=== PATIENT | female | born 1990 | race Caucasian/White ===

== ENCOUNTER 2016-07-02 12:55 | Emergency (ER) | payer SELFPAY ==
[2016-07-02 13:19] VITALS: BP 121/65
[2016-07-02] MEDS ORDERED: OXYCODONE-ACETAMINOPHEN 5-325 MG TABLET PO ONE (14:04)
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
== END 2016-07-02 14:15 | disposition home or self-care (01) ==
LOC: ER 12:55
DX: S00.12XA Contusion of left eyelid and periocular area, initial encounter (principal); S70.02XA Contusion of left hip, initial encounter; S50.11XA Contusion of right forearm, initial encounter; S40.021A Contusion of right upper arm, initial encounter; S50.12XA Contusion of left forearm, initial encounter; S70.12XA Contusion of left thigh, initial encounter; S70.11XA Contusion of right thigh, initial encounter; S80.11XA Contusion of right lower leg, initial encounter; M54.9 Dorsalgia, unspecified; Y04.2XXA Assault by strike against or bumped into by another person, initial encounter; Y93.01 Activity, walking, marching and hiking; F17.210 Nicotine dependence, cigarettes, uncomplicated; J45.909 Unspecified asthma, uncomplicated
CPT/HCPCS: 99283

== ENCOUNTER 2016-09-16 16:18 | Emergency (ER) | payer SELFPAY ==
[2016-09-16 17:11] LABS: ABSOLUTE BASOPHILS # (AUTO) 0.1 10^3/uL (0.0-0.2); ABSOLUTE EOSINOPHILS # (AUTO) 0.2 10^3/uL (0.0-0.6); ABSOLUTE LYMPHOCYTES (AUTO) 2.7 10^3/uL (0.5-4.7); ABSOLUTE MONOCYTES (AUTO) 0.6 10^3/uL (0.1-1.4); ABSOLUTE NEUT (AUTO) 6.5 10^3/uL (1.7-8.2); BASOPHILS % (AUTO) 0.8 % (0-2); EOSINOPHILS % (AUTO) 1.5 % (0-6); HEMATOCRIT 40.9 % (36.0-47.0); HEMOGLOBIN 13.8 g/dL (12.0-15.5); HGB HCT DIFFERENCE 0.5; LYMPHOCYTES % (AUTO) 26.5 % (13-45); MEAN CORPUSCULAR HGB CONC 33.7 g/dL (32.0-36.0); MEAN CORPUSCULAR VOLUME 89 fl (80-97); MONOCYTES % (AUTO) 6.3 % (3-13); RED BLOOD COUNT 4.61 10^6/uL (3.72-5.28); RED CELL DISTRIBUTION WIDTH 13.5 % (11.5-14.0); SEGMENTED NEUTROPHILS % (AUTO) 64.9 % (42-78); WHITE BLOOD COUNT 10.1 10^3/uL (4.0-10.5)
[2016-09-16 17:18] LABS: APPEARANCE,URINE SLIGHTLY-CLOUDY; BILIRUBIN,URINE NEGATIVE (NEGATIVE); GLUCOSE, URINE NEGATIVE (NEGATIVE); KETONES,URINE NEGATIVE (NEGATIVE); LEUKOCYTE ESTERASE,URINE LARGE (NEGATIVE); NITRITE,URINE NEGATIVE (NEGATIVE); PROTEIN,URINE NEGATIVE (NEGATIVE); URINE SPECIFIC GRAVITY 1.005; UROBILINOGEN,URINE NEGATIVE mg/dL (<2.0)
[2016-09-16 17:26] LABS: ALANINE AMINOTRANSFERASE 17 U/L (9-52); ALBUMIN 4.5 g/dL (3.5-5.0); ALKALINE PHOSPHATASE 52 U/L (38-126); ANION GAP 12 (5-19); ASPARTATE AMINO TRANSFERASE 16 U/L (14-36); BILIRUBIN,DIRECT 0.3 mg/dL (0.0-0.4); BILIRUBIN,TOTAL 0.6 mg/dL (0.2-1.3); BLOOD UREA NITROGEN 4 mg/dL (7-20); CALCIUM 9.8 mg/dL (8.4-10.2); CARBON DIOXIDE 25 mmol/L (22-30); CHLORIDE 102 mmol/L (98-107); CREATININE RESULT 0.53 mg/dL (0.52-1.25); GLUCOSE 81 mg/dL (75-110); POTASSIUM 4.1 mmol/L (3.6-5.0); SODIUM 138.6 mmol/L (137-145); TOTAL PROTEIN 7.6 g/dL (6.3-8.2)
--- NOTE | 2016-09-16 18:10 | ER Document Report ---
ED General - General Chief Complaint: Abdominal Cramping Stated Complaint: ABDOMINAL PAIN,VOMITING Time Seen by Provider: 09/16/16 16:54 Notes: Patient presents with bilateral lower quadrant abdominal pain. It is moderate to severe. It is crampy. It does go the low back. It has been present for 3- 4 days. Nothing makes it better or worse. No vaginal bleeding. No problems with urination. She states she has missed her period last 2 months. Patient states she has been nauseous and having some vomiting. Symptoms intermittent. TRAVEL OUTSIDE OF THE [place] IN LAST 30 DAYS: No - Related Data Allergies/Adverse Reactions: No Known Allergies Allergy (Verified 09/16/16 16:28) Past Medical History - General Information source: Patient - Social History Smoking Status: Current Every Day Smoker Chew tobacco use (# tins/day): No Frequency of alcohol use: None Drug Abuse: None Family History: Arthritis, DM, Hyperlipidemia, Hypertension, Malignancy Patient has suicidal ideation: No Patient has homicidal ideation: No Pulmonary Medical History: Reports: Hx Asthma, Hx Bronchitis Neurological Medical History: Reports: Hx Migraine Renal/ Medical History: Denies: Hx Peritoneal Dialysis Musculoskeltal Medical History: Reports Hx Musculoskeletal Deformity, Reports Hx Musculoskeletal Trauma Traumatic Medical History: Reports: Hx Fractures Past Surgical History: Reports: Hx Orthopedic Surgery - fx r wrist - Immunizations Immunizations up to date: Yes Hx Diphtheria, Pertussis, Tetanus Vaccination: Yes Review of Systems - Review of Systems Constitutional: denies: Chills, Fever Cardiovascular: denies: Chest pain, Palpitations Respiratory: denies: Cough, Short of breath Gastrointestinal: Abdominal pain, Diarrhea, Vomiting -: Yes All other systems reviewed and negative Physical Exam - Vital signs Vitals: Temp Pulse Resp BP Pulse Ox 98.4 F 97 18 113/66 98 09/16/16 16:30 09/16/16 16:30 09/16/16 16:30 09/16/16 16:30 09/16/16 16:30 Interpretation: Normal - General General appearance: Appears well, Alert - HEENT Head: Normocephalic, Atraumatic Eyes: Normal Pupils: PERRL - Respiratory Respiratory status: No respiratory distress Chest status: Nontender Breath sounds: Normal Chest palpation: Normal - Cardiovascular Rhythm: Regular Heart sounds: Normal auscultation Murmur: No - Abdominal Inspection: Normal Distension: No distension Bowel sounds: Normal Tenderness: Nontender Organomegaly: No organomegaly - Back Back: Normal, Nontender - Extremities General upper extremity: Normal inspection, Nontender, Normal color, Normal ROM , Normal temperature General lower extremity: Normal inspection, Nontender, Normal color, Normal ROM , Normal temperature, Normal weight bearing. No: Adriana's sign - Neurological Neuro grossly intact: Yes Cognition: Normal Orientation: AAOx4 [place] Coma Scale Eye Opening: Spontaneous [place] Coma Scale Verbal: Oriented [place] Coma Scale Motor: Obeys Commands Tra Coma Scale Total: 15 Speech: Normal Motor strength normal: LUE, RUE, LLE, RLE Sensory: Normal - Psychological Associated symptoms: Normal affect, Normal mood - Skin Skin Temperature: Warm Skin Moisture: Dry Skin Color: Normal Course - Vital Signs Vital signs: Temp Pulse Resp BP Pulse Ox 98.4 F 97 18 113/66 98 09/16/16 16:30 09/16/16 16:30 09/16/16 16:30 09/16/16 16:30 09/16/16 16:30 - Laboratory Result Diagrams: 09/16/16 16:55 09/16/16 16:55 Laboratory results interpreted by me: 09/16/16 09/16/16 09/16/16 16:55 16:55 16:55 BUN 4 L Beta HCG, Quant [id number] H Ur Leukocyte Esterase LARGE H Urine HCG, Qual POSITIVE H Discharge - Discharge Clinical Impression: Abdominal pain affecting Condition: Stable Disposition: HOME, SELF-CARE Instructions: Abdominal Pain ([facility]) Additional Instructions: There are approximately 7 weeks . You will need to follow-up with an ADMINISTRATIVE ANALYST doctor as soon as possible. Please call Dr. Gamboa as soon as possible to arrange follow-up. Referrals: RONALD GAMBOA MD [ACTIVE STAFF] - Follow up in 3-5 days
--- NOTE | 2016-09-16 19:15 | RADIOLOGY REPORT (SQ) ---
EXAM DESCRIPTION: U/S OB TRANSVAGINAL W/O DOP COMPLETED DATE/TIME: 09/16/2016 6:59 pm REASON FOR STUDY: pain/preg COMPARISON: None. TECHNIQUE: Transvaginal static and realtime grayscale images acquired of the pelvis. Additional jaylin cted spectral and color Doppler images recorded. All images stored on PACs. bHCG: Not available LIMITATIONS: None. FINDINGS: FETUS: Living intrauterine . EGA: 7 weeks 3 days MOUNA: 05/02/2017 FHR: 143 beats per minute. SUBCHORIONIC BLEED: No SIZE OF BLEED: Not applicable. UTERUS: No masses. No anomalies. CERVICAL LENGTH: 3.0 cm Closed. RIGHT ADNEXA: Normal ovary with normal vascular flow. Small cyst is identified measuring 2.4 x 2.1 x 1.9 cm most consistent with a corpus lutein cysts. LEFT ADNEXA: Normal ovary with normal vascular flow. No adnexal free fluid. No adnexal masses. FREE FLUID: None. OTHER: No other significant finding. IMPRESSION: LIVING INTRAUTERINE . EGA 7 weeks 3 days Trimester of : First - 0 to 13 weeks. TECHNICAL DOCUMENTATION: JOB ID: [id number] [employer]- All Rights Reserved
[2016-09-16 19:32] VITALS: BP 111/76
== END 2016-09-16 19:32 | disposition home or self-care (01) ==
LOC: ER 16:18
DX: R10.9 Unspecified abdominal pain (principal); R10.2 Pelvic and perineal pain; R11.10 Vomiting, unspecified; F17.200 Nicotine dependence, unspecified, uncomplicated; Z33.1 Pregnant state, incidental
CPT/HCPCS: 36415; 76817; 80053; 81001; 81025; 84702; 85025; 99284

== ENCOUNTER 2016-10-24 14:29 | Emergency (ER) | payer SELFPAY ==
--- NOTE | 2016-10-24 14:56 | ER Document Report ---
ED GI/ - General Chief Complaint: Vaginal Bleeding Stated Complaint: VAGINAL BLEEDING Time Seen by Provider: 10/24/16 14:55 Notes: The patient is a 26-year-old female, 13 weeks , blood type O+, presents with a small amount of vaginal spotting last night that now progressed to cramping and passing blood clots this morning. She feels a pressure in her pelvis, but denies contractions, nausea, vomiting, dysuria, hematuria, flank pain, fevers or headache. TRAVEL OUTSIDE OF THE [place] IN LAST 30 DAYS: No - Related Data Allergies/Adverse Reactions: No Known Allergies Allergy (Verified 09/16/16 16:28) Past Medical History - General Information source: Patient - Social History Smoking Status: Unknown if Ever Smoked Family History: Arthritis, DM, Hyperlipidemia, Hypertension, Malignancy Patient has suicidal ideation: No Patient has homicidal ideation: No Pulmonary Medical History: Reports: Hx Asthma, Hx Bronchitis Neurological Medical History: Reports: Hx Migraine Renal/ Medical History: Denies: Hx Peritoneal Dialysis Musculoskeltal Medical History: Reports Hx Musculoskeletal Deformity, Reports Hx Musculoskeletal Trauma Traumatic Medical History: Reports: Hx Fractures Past Surgical History: Reports: Hx Orthopedic Surgery - fx r wrist - Immunizations Immunizations up to date: Yes Hx Diphtheria, Pertussis, Tetanus Vaccination: Yes Review of Systems - Review of Systems Notes: REVIEW OF SYSTEMS: CONSTITUTIONAL: -fevers, -chills EENT: -eye pain, -difficulty swallowing, -nasal congestion CARDIOVASCULAR:-chest pain, -syncope. RESPIRATORY: -cough, -SOB GASTROINTESTINAL: -abdominal pain, - nausea, -vomiting, -diarrhea GENITOURINARY: -dysuria, -hematuria, +vaginal bleeding MUSCULOSKELETAL: -back pain, -neck pain SKIN: -rash or skin lesions. HEMATOLOGIC: -easy bruising or bleeding. LYMPHATIC: -swollen, enlarged glands. NEUROLOGICAL: -altered mental status or loss of consciousness, -headache, - neurologic symptoms PSYCHIATRIC: -anxiety, -depression. ALL OTHER SYSTEMS REVIEWED AND NEGATIVE. Physical Exam - Vital signs Vitals: Temp Pulse Resp BP Pulse Ox 98.5 F 85 12 115/62 98 10/24/16 14:50 10/24/16 14:50 10/24/16 14:50 10/24/16 14:50 10/24/16 14:50 - Notes Notes: PHYSICAL EXAMINATION: GENERAL: Well-appearing, well-nourished and in no acute distress. HEAD: Atraumatic, normocephalic. EYES: Pupils equal round and reactive to light, extraocular movements intact, sclera anicteric, conjunctiva are normal. ENT: nares patent, oropharynx clear without exudates. Moist mucous membranes. NECK: Normal range of motion, supple without lymphadenopathy LUNGS: Breath sounds clear to auscultation bilaterally and equal. No wheezes rales or rhonchi. HEART: Regular rate and rhythm without murmurs ABDOMEN: Soft, nontender, normoactive bowel sounds. No guarding, no rebound. No masses appreciated. : No bleeding noted in vagina. Closed cervix. Non-tender adnexa or uterus. EXTREMITIES: Normal range of motion, no pitting or edema. No cyanosis. NEUROLOGICAL: Cranial nerves grossly intact. Normal speech, normal gait. Normal sensory and motor exams. PSYCH: Normal mood, normal affect. SKIN: Warm, Dry, normal turgor, no rashes or lesions noted. Course - Re-evaluation Re-evalutation: Patient's blood type is O+. Her bedside ultrasound shows a single intrauterine fetus consistent with dates and normal heart rate and active movement. Pelvic exam shows a closed cervix without any evidence of vaginal bleeding or clots. Her vitals are stable. UA shows evidence of a urinary tract infection and will begin Macrobid. Will discharge patient home with return precautions and [facility] for further evaluation and treatment. - Vital Signs Vital signs: Temp Pulse Resp BP Pulse Ox 98.5 F 85 12 115/62 98 10/24/16 14:50 10/24/16 14:50 10/24/16 14:50 10/24/16 14:50 10/24/16 14:50 - Laboratory Laboratory results interpreted by me: 10/24/16 15:18 Urine Blood LARGE H Ur Leukocyte Esterase MODERATE H Procedures - Ultrasound/Bedside Ultrasound/Bedside Time completed: 15:05 Notes: OB US: single IUP with EGA 13 weeks, FHR 161 Discharge - Discharge Clinical Impression: Vaginal bleeding before 22 weeks gestation UTI (urinary tract infection) Qualifiers: Urinary tract infection type: acute cystitis Hematuria presence: without hematuria Qualified Code(s): N30.00 - Acute cystitis without hematuria Condition: Stable Disposition: HOME, SELF-CARE Additional Instructions: : You are . care is best started as early in as possible. If you're unsure about continuing this , you should discuss this with your physician or with hot mill roller at [facility]. You should take only medications approved by your physician. Acetaminophen can safely be taken for minor pains. As a rule, medication for chronic conditions such as asthma or seizures can safely be continued. You should discuss with the physician every medicine you take. Any regular exercise program can be continued. Talk to your physician, however, before engaging in competitive or demanding sports. Alcohol, smoking, and "street drugs" are dangerous to your baby. Cocaine is especially dangerous. Don't use any illicit drugs! BLEEDING DURING EARLY : You have been evaluated for passing blood while . While we take this symptom very seriously, most women with your degree of bleeding will go on to have a perfectly normal baby. At this time, there is no indication that a miscarriage will occur. (A miscarriage occurs when the fetus is abnormal. There is no medicine or treatment to prevent it.) A more serious cause of bleeding is tubal (or ectopic) . An ultrasound usually can show whether the is in the uterus or in the tube. Sometimes in early , no fetus is seen. In this case, careful follow-up, including repeat blood tests and repeat ultrasound, is necessary. Do not douche or have sex for at least a week, or until OK'd by the doctor. Don't use tampons. Call the doctor or return for re-examination if there is an increase in bleeding or cramping, extreme weakness, fainting, new abdominal pain, fever, or passage of tissue. THREATENED MISCARRIAGE: You have been evaluated for a possible miscarriage. At this time, there is no indication that a miscarriage will occur. Most women with your symptoms will go on to have a perfectly normal baby. However, careful observation will be necessary. A miscarriage occurs when the fetus is abnormal. There is no medicine or treatment for it. You should rest in bed until the symptoms have resolved. Do not douche or have sex for at least a week, or until OK'd by the doctor. Call the doctor or return for re-examination if there is an increase in bleeding or cramping, or passage of tissue. FOLLOW-UP CARE: If you have been referred to a physician for follow-up care, call the physician s office for an appointment as you were instructed or within the next two days. If you experience worsening or a significant change in your symptoms (very heavy bleeding with large clots of blood, passage of tissue, more severe abdominal / pelvic pain or cramping, feeling faint or severe weakness, fever, etc.), notify the physician immediately or return to the Emergency Department at any time for re-evaluation. OBSTETRIC-GYNECOLOGIC (OB-HIM DIRECTOR) PHYSICIANS IN [place]: [facility] [address], [place] [address] [facility] [address], [place] [phone] For active duty and dependents diagnosed with a threatened or miscarriage, you should follow up in the following manner: Standard patients who have a local civilian provider should follow up with that provider. Patients of the Family Practice Clinic should call your Team Nurse at 8: 00 am the following morning for further instructions. If you are neither a Standard patient nor a patient of the Family Practice Clinic, you should follow up at the [facility] ([facility]) . Patients already enrolled in the [facility], Prime patients not assigned to the Family Practice Clinic, and Active Duty patients not assigned to [facility] should report to the [facility] at 8:00 am the next morning that the [facility] is open and then you will be seen in the OB Clinic at 11:00 am. URINARY TRACT INFECTION: Your evaluation indicates that you have a urinary tract infection. This is due to germs growing in the bladder. This is a common problem. This infection usually responds quickly to antibiotics. Your antibiotic should be taken exactly as prescribed. Drink plenty of fluids -- three to four quarts a day. Occasionally, a bladder anesthetic will be prescribed to help stop the feeling of urgency until the antibiotic has a chance to clear the infection. This may cause your urine to be dark orange. Certain urine infections require a culture. If the doctor obtained a culture, the results will be back in two days. You should call to see if a change in treatment is needed. A repeat urinalysis after you finish treatment is often recommended. The physician will let you know if further testing is required. Call the doctor if you develop fever, chills, flank pain, inability to urinate, or blood in the urine. ANTIBIOTIC THERAPY: You have been given an antibiotic prescription. It's important that you take all the medication, unless instructed otherwise by your physician. Failure to complete the entire course can result in relapse of your condition. Common side effects of antibiotics include nausea, intestinal cramping, or diarrhea. Women may develop vaginal yeast infections, and babies can get yeast (thrush) in the mouth following the use of antibiotics. Contact your physician if you develop significant side effects from this medication. Allergy to this antibiotic can result in hives, wheezing, faintness, or itching. If symptoms of allergy occur, stop the medication and call the doctor. NITROFURANTOIN (MACRODANTIN, MACROBID): You have received a prescription for nitrofurantoin (Macrodantin). This antibiotic is used for urinary tract infections. Women who are or nursing should notify the physician before taking this medicine. If you have ever had a problem caused by this medication in the past, be sure the physician is aware of it. Common side effects of this medicine include nausea, vomiting, or decreased appetite. Notify your physician if these side effects become severe. Immediately stop this medicine and call the physician if you develop cough , shortness of breath, chest pain, weakness, jaundice (yellow color of the skin and whites of the eyes), or a skin rash. FOLLOW-UP CARE: If you have been referred to a physician for follow-up care, call the physician s office for an appointment as you were instructed or within the next two days. If you experience worsening or a significant change in your symptoms, notify the physician immediately or return to the Emergency Department at any time for re-evaluation. Prescriptions: Nitrofurantoin/Nitrofuran Mac [Macrobid 100 mg Capsule] 1 tab PO BID #10 capsule Referrals: RENAY CORTEZ DO [SHIRAZ العراقي] - Follow up as needed
[2016-10-24 15:38] LABS: APPEARANCE,URINE CLEAR; BILIRUBIN,URINE NEGATIVE (NEGATIVE); GLUCOSE, URINE NEGATIVE (NEGATIVE); KETONES,URINE NEGATIVE (NEGATIVE); LEUKOCYTE ESTERASE,URINE MODERATE (NEGATIVE); NITRITE,URINE NEGATIVE (NEGATIVE); PROTEIN,URINE NEGATIVE (NEGATIVE); URINE SPECIFIC GRAVITY 1.002; UROBILINOGEN,URINE NEGATIVE mg/dL (<2.0)
[2016-10-24 15:44] VITALS: BP 114/60
== END 2016-10-24 15:44 | disposition home or self-care (01) ==
LOC: ER 14:29
DX: O20.9 Hemorrhage in early pregnancy, unspecified (principal); O23.11 Infections of bladder in pregnancy, first trimester; O99.511 Diseases of the respiratory system complicating pregnancy, first trimester; J45.909 Unspecified asthma, uncomplicated; Z3A.13 13 weeks gestation of pregnancy
CPT/HCPCS: 81001; 99284

== ENCOUNTER 2016-10-27 15:56 | Emergency (ER) | payer SELFPAY ==
--- NOTE | 2016-10-27 16:57 | ER Document Report ---
ED GI/ - General Chief Complaint: Dizziness Stated Complaint: DIZZY,BLURRED VISION,FEVER Time Seen by Provider: 10/27/16 16:39 Mode of Arrival: Ambulatory Information source: Patient Notes: 26-year-old female presents to ED for complaint of abdominal pain back pain dizziness blurry vision fever cramping and trouble breathing. She is approximately 12 weeks and was seen on the third for vaginal bleeding. She states she was diagnosed with UTI and started on Macrobid and the pain is gotten worse not better. She states today she went to work and she was only there for a few minutes before she started getting dizzy and had to sit down the whole time she was at [employer] and only stayed an hour and then went home. TRAVEL OUTSIDE OF THE [place] IN LAST 30 DAYS: No - HPI Patient complains to provider of: Abdominal pain, Flank pain, , Other - dizziness Onset: Last week Timing/Duration: Persistent Quality of pain: Sharp Severity at maximum: Moderate Severity in ED: Moderate Pain Level: 3 Location: Right flank Vaginal bleeding (Compared to normal period): None Associated symptoms: Dizzy, Other - right flank pian - Related Data Allergies/Adverse Reactions: No Known Allergies Allergy (Verified 10/27/16 16:09) Past Medical History - General Information source: Patient - Social History Smoking Status: Current Every Day Smoker Cigarette use (# per day): Yes - 2 cigarettes a day Chew tobacco use (# tins/day): No Smoking Education Provided: Yes - Less than 1 minute Frequency of alcohol use: None Drug Abuse: None Occupation: [employer] Lives with: Alone Family History: Arthritis, DM, Hyperlipidemia, Hypertension, Malignancy Patient has suicidal ideation: No Patient has homicidal ideation: No - Past Medical History Cardiac Medical History: Reports: None Pulmonary Medical History: Reports: Hx Asthma, Hx Bronchitis EENT Medical History: Reports: None Neurological Medical History: Reports: Hx Migraine Endocrine Medical History: Reports: None Renal/ Medical History: Reports: None Malignancy Medical History: Reports: None GI Medical History: Reports: None Musculoskeltal Medical History: Reports Hx Musculoskeletal Deformity, Reports Hx Musculoskeletal Trauma Skin Medical History: Reports None Psychiatric Medical History: Reports: None Traumatic Medical History: Reports: Hx Fractures Infectious Medical History: Reports: None Past Surgical History: Reports: Hx Orthopedic Surgery - fx r wrist - Immunizations Immunizations up to date: Yes Hx Diphtheria, Pertussis, Tetanus Vaccination: Yes Review of Systems - Review of Systems Constitutional: No symptoms reported EENT: No symptoms reported Cardiovascular: Dizziness, Lightheaded Respiratory: No symptoms reported Gastrointestinal: Abdominal pain Genitourinary: Flank pain Female Genitourinary: Musculoskeletal: No symptoms reported Skin: No symptoms reported Hematologic/Lymphatic: No symptoms reported Neurological/Psychological: No symptoms reported -: Yes All other systems reviewed and negative Physical Exam - Vital signs Vitals: Temp Pulse Resp BP Pulse Ox 98.5 F 78 18 123/57 L 98 10/27/16 16:10/27/16 16:10/27/16 16:10/27/16 16:10/27/16 16:09 Interpretation: Normal - General General appearance: Appears well, Alert - HEENT Head: Normocephalic, Atraumatic Eyes: Normal Pupils: PERRL - Respiratory Respiratory status: No respiratory distress Chest status: Nontender Breath sounds: Normal Chest palpation: Normal - Cardiovascular Rhythm: Regular Heart sounds: Normal auscultation Murmur: No - Abdominal Inspection: Normal Distension: No distension Bowel sounds: Normal Tenderness: Nontender Organomegaly: No organomegaly - Back Back: Normal, CVA tenderness - Right - Extremities General upper extremity: Normal inspection, Nontender, Normal color, Normal ROM , Normal temperature General lower extremity: Normal inspection, Nontender, Normal color, Normal ROM , Normal temperature, Normal weight bearing. No: Adriana's sign - Neurological Neuro grossly intact: Yes Cognition: Normal Orientation: AAOx4 Tra Coma Scale Eye Opening: Spontaneous [place] Coma Scale Verbal: Oriented [place] Coma Scale Motor: Obeys Commands [place] Coma Scale Total: 15 Speech: Normal Cranial nerves: Normal Cerebellar coordination: Normal Motor strength normal: LUE, RUE, LLE, RLE Additional motor exam normals: Equal adjunct philosophy faculty Babinski reflex: Normal (flexor plantar) Sensory: Normal Biceps - Reflex grade: 2 = Normal Triceps - Reflex grade: 2 = Normal Brachioradialis - Reflex grade: 2 = Normal Knee - Reflex grade: 2 = Normal Ankle - Reflex grade: 2 = Normal - Psychological Associated symptoms: Normal affect, Normal mood - Skin Skin Temperature: Warm Skin Moisture: Dry Skin Color: Normal Course - Re-evaluation Re-evalutation: 10/27/16 21:55 Patient is very anxious about her and the fact that she is continued to have flank pain. A urine was sent patient was treated with Keflex to go along with the Macrobid she is already taken for her UTI. The UTI is actually worse today. A urine culture was sent. Patient was discharged home with prescription for Keflex and instructed to follow-up with the health department or [facility]. - Vital Signs Vital signs: Temp Pulse Resp BP Pulse Ox 98.5 F 78 18 103/43 L 99 10/27/16 17:54 10/27/16 17:54 10/27/16 16:10 10/27/16 17:54 10/27/16 17:54 - Laboratory Laboratory results interpreted by me: 10/27/16 16:40 Urine Protein 30 H Urine Ketones 20 H Urine Blood MODERATE H Ur Leukocyte Esterase LARGE H Discharge - Discharge Clinical Impression: UTI (urinary tract infection) Qualifiers: Urinary tract infection type: site unspecified Hematuria presence: without hematuria Qualified Code(s): N39.0 - Urinary tract infection, site not specified Condition: Stable Disposition: HOME, SELF-CARE Instructions: Family Physicians / Practices Additional Instructions: URINARY TRACT INFECTION: Your evaluation indicates that you have a urinary tract infection. This is due to germs growing in the bladder. This is a common problem. This infection usually responds quickly to antibiotics. Your antibiotic should be taken exactly as prescribed. Drink plenty of fluids -- three to four quarts a day. Occasionally, a bladder anesthetic will be prescribed to help stop the feeling of urgency until the antibiotic has a chance to clear the infection. This may cause your urine to be dark orange. Certain urine infections require a culture. If the doctor obtained a culture, the results will be back in two days. You should call to see if a change in treatment is needed. A repeat urinalysis after you finish treatment is often recommended. The physician will let you know if further testing is required. Call the doctor if you develop fever, chills, flank pain, inability to urinate, or blood in the urine. CEPHALEXIN: The antibiotic you've been prescribed is a member of the cephalosporin class. This type of antibiotic covers a wide variety of infections, including those of the skin, lungs, and urinary tract. It's useful for staph infections. This antibiotic is slightly similar to the penicillin family. In rare cases , a person who is allergic to penicillin will also be allergic to this medication. If you have had a severe allergic reaction to penicillin, and have not taken this antibiotic since that time, notify your doctor. Antibiotics which cover many germs ("broad spectrum" antibiotics) are more likely to cause diarrhea or "yeast" infections. Women prone to vaginal yeast problems may suffer an attack after taking this antibiotic. In infants, oral thrush (white spots "stuck" on the cheek) or yeast diaper rash may result. See your doctor if these problems occur. Call at once if you develop itching, hives , shortness of breath, or lightheadedness. FOLLOW-UP CARE: If you have been referred to a physician for follow-up care, call the physician s office for an appointment as you were instructed or within the next two days. If you experience worsening or a significant change in your symptoms, notify the physician immediately or return to the Emergency Department at any time for re-evaluation. Prescriptions: Cephalexin Monohydrate [Keflex 500 mg Capsule] 500 mg PO Q6H 10 Days capsule Forms: Return to Work Referrals: [facility] [Provider Group] - Follow up as needed
[2016-10-27 17:33] LABS: APPEARANCE,URINE SLIGHTLY-CLOUDY; BILIRUBIN,URINE NEGATIVE (NEGATIVE); GLUCOSE, URINE NEGATIVE (NEGATIVE); KETONES,URINE 20 mg/dL (NEGATIVE); LEUKOCYTE ESTERASE,URINE LARGE (NEGATIVE); NITRITE,URINE NEGATIVE (NEGATIVE); PROTEIN,URINE 30 mg/dL (NEGATIVE); URINE SPECIFIC GRAVITY 1.002; UROBILINOGEN,URINE NEGATIVE mg/dL (<2.0)
[2016-10-27] MEDS ORDERED: CEFTRIAXONE INJ 1000 MG VIAL IM ONE (17:36)
[2016-10-27] MEDS ORDERED: LIDOCAINE 1% INJ-PF (10 MG/ML) 30 ML SDV INJ ONE (17:36)
[2016-10-27 18:04] VITALS: BP 103/43
== END 2016-10-27 18:04 | disposition home or self-care (01) ==
LOC: ER 15:56
DX: N39.0 Urinary tract infection, site not specified (principal); R42 Dizziness and giddiness; H53.8 Other visual disturbances; R50.9 Fever, unspecified; R10.9 Unspecified abdominal pain; M54.9 Dorsalgia, unspecified; F17.210 Nicotine dependence, cigarettes, uncomplicated
CPT/HCPCS: 99284; 96372; 87086; 87088; 81001; 87186; J3490; J0696

== ENCOUNTER 2017-04-10 19:46 | Outpatient (CLI) | payer SELFPAY ==
[2017-04-10 20:47] LABS: BILIRUBIN,URINE NEGATIVE (NEGATIVE); COLOR,URINE YELLOW; GLUCOSE, URINE NEGATIVE (NEGATIVE); KETONES,URINE NEGATIVE (NEGATIVE); LEUKOCYTE ESTERASE,URINE LARGE (NEGATIVE); NITRITE,URINE NEGATIVE (NEGATIVE); PROTEIN,URINE NEGATIVE (NEGATIVE); URINE SPECIFIC GRAVITY 1.002; UROBILINOGEN,URINE NEGATIVE mg/dL (<2.0)
[2017-04-10 20:50] LABS: APPEARANCE,URINE CLEAR
[2017-04-10 21:00] LABS: AMNISURE (ROM) NEGATIVE (NEGATIVE)
[2017-04-10 21:12] LABS: URINE AMPHETAMINES SCREEN NEGATIVE; URINE BARBITURATES SCREEN NEGATIVE; URINE BENZODIAZEPINES SCREEN NEGATIVE; URINE COCAINE SCREEN NEGATIVE; URINE MARIJUANA (THC) SCREEN NEGATIVE; URINE METHADONE SCREEN NEGATIVE; URINE PHENCYCLIDINE SCREEN NEGATIVE
[2017-04-10 21:27] LABS: ABSOLUTE EOSINOPHILS # (AUTO) 0.1 10^3/uL (0.0-0.6); ABSOLUTE LYMPHOCYTES (AUTO) 2.2 10^3/uL (0.5-4.7); ABSOLUTE MONOCYTES (AUTO) 0.6 10^3/uL (0.1-1.4); ABSOLUTE NEUT (AUTO) 8.1 10^3/uL (1.7-8.2); BASOPHILS % (AUTO) 0.3 % (0-2); EOSINOPHILS % (AUTO) 0.9 % (0-6); HEMATOCRIT 33.5 % (36.0-47.0); HEMOGLOBIN 11.3 g/dL (12.0-15.5); LYMPHOCYTES % (AUTO) 20.2 % (13-45); MEAN CORPUSCULAR HEMOGLOBIN 30.1 pg (27.0-33.4); MEAN CORPUSCULAR HGB CONC 33.7 g/dL (32.0-36.0); MEAN CORPUSCULAR VOLUME 89 fl (80-97); MONOCYTES % (AUTO) 5.2 % (3-13); PLATELET COUNT 182 10^3/uL (150-450); RED BLOOD COUNT 3.75 10^6/uL (3.72-5.28); RED CELL DISTRIBUTION WIDTH 13.2 % (11.5-14.0); SEGMENTED NEUTROPHILS % (AUTO) 73.4 % (42-78); TOTAL CELLS COUNTED % (AUTO) 100 %
[2017-04-10 22:26] LABS: RUBELLA INTERPRETATION POSITIVE
--- NOTE | 2017-04-10 22:30 | RADIOLOGY REPORT (SQ) ---
EXAM DESCRIPTION: U/S OB LIMITED COMPLETED DATE/TIME: 04/10/2017 10:17 pm REASON FOR STUDY: suspect SROM, MOUNA 05/02, position, JANES/SDP, EFW COMPARISON: None. TECHNIQUE: Limited transabdominal grayscale ultrasound for evaluation of specific requested obstetri kody parameters. LIMITATIONS: None. FINDINGS: JANES: 18 cm. Largest pocket 5.8 cm. FHR: 119 beats per minute. PRESENTATION: Cephalic. OTHER: Estimated weight 3044 g +/ -451 g. IMPRESSION: LIMITED OBSTETRICAL ULTRASOUND WITH MEASURED PARAMETERS DELINEATED ABOVE. Trimester of : Third trimester - 28 weeks to delivery. TECHNICAL DOCUMENTATION: JOB ID: [id number] [employer]- All Rights Reserved
[2017-04-11 00:15] LABS: GON PCR NOT DETECTED (NOT DETECT)
[2017-04-11 00:18] LABS: CHLAM PCR DETECTED (NOT DETECT)
--- NOTE | 2017-04-11 00:42 | Non Stress Test Report ---
Non Stress Test Datetime Report Generated by CPN: 04/11/2017 00:42 DEMOGRAPHIC EGA NST: 36.6 INDICATION Indication for Study: Ordered by Provider Indication for Study (NST) Other: Suspected ROM MONITORING Monitor Explained: Monitor Explained; Test Explained; Patient Verbalized Understanding Time on Monitor: 04/10/2017 21:08 Time off Monitor: 04/10/2017 21:28 NST Duration: 20 NST INTERVENTIONS NST Interventions: PO Hydration Physician Notified NST: Dr. Chowdary BABY A: [id number] BABY A Movement : Present Contraction Frequency : irregular FHR Baseline : 120 Accelerations : 15X15 Decelerations : None Variability : Moderate 6-25bpm NST Review: Meets Criteria for Reactive NST NST Review and Verified By : gogo DAVIS Results: Reactive NST REPORT Report Trigger: Send Report
[2017-04-12 07:41] LABS: HEPATITIS C VIRUS AB <0.1 s/co ratio (0.0-0.9)
[2017-04-12 08:17] LABS: HEPATITS B SURFACE ANTIGEN Negative (Negative)
== END 2017-04-10 23:11 | disposition home or self-care (01) ==
LOC: LC 19:46
PROVIDERS: ATTEND Student in an Organized Health Care Education/Training Program
PROC: 4A1HXCZ Monitoring of Products of Conception, Cardiac Rate, External Approach (ICD-10-PCS; principal; 2017-04-10)
DX: O47.03 False labor before 37 completed weeks of gestation, third trimester (principal); Z3A.36 36 weeks gestation of pregnancy
CPT/HCPCS: 36415; 76815; 80307; 81005; 84112; 84443; 85025; 86592; 86701; 86762; 86803; 86804; 86850; 86900; 86901; 87081; 87340; 87491; 87591

== ENCOUNTER 2017-04-25 21:41 | Outpatient (CLI) | payer SELFPAY ==
[2017-04-25 22:21] LABS: APPEARANCE,URINE SLIGHTLY-CLOUDY; BILIRUBIN,URINE NEGATIVE (NEGATIVE); COLOR,URINE YELLOW; GLUCOSE, URINE NEGATIVE (NEGATIVE); KETONES,URINE NEGATIVE (NEGATIVE); LEUKOCYTE ESTERASE,URINE SMALL (NEGATIVE); NITRITE,URINE NEGATIVE (NEGATIVE); PROTEIN,URINE NEGATIVE (NEGATIVE)
[2017-04-25 22:37] LABS: URINE AMPHETAMINES SCREEN NEGATIVE; URINE BARBITURATES SCREEN NEGATIVE; URINE BENZODIAZEPINES SCREEN NEGATIVE; URINE COCAINE SCREEN NEGATIVE; URINE MARIJUANA (THC) SCREEN NEGATIVE; URINE METHADONE SCREEN NEGATIVE; URINE PHENCYCLIDINE SCREEN NEGATIVE
[2017-04-25] MEDS ORDERED: HYDROXYZINE PAMOATE 50 MG CAPSULE PO ONE ×2 (23:18→23:23)
[2017-04-25] MEDS ORDERED: HYDROXYZINE PAMOATE 50 MG CAPSULE ONE (23:30)
== END 2017-04-25 23:38 | disposition home or self-care (01) ==
LOC: LC 21:41
PROVIDERS: ATTEND Obstetrics & Gynecology
PROC: 4A1HXCZ Monitoring of Products of Conception, Cardiac Rate, External Approach (ICD-10-PCS; principal; 2017-04-25)
DX: O26.893 Other specified pregnancy related conditions, third trimester (principal); N85.8 Other specified noninflammatory disorders of uterus; Z3A.38 38 weeks gestation of pregnancy
CPT/HCPCS: 59025; 80307; 81005

== ENCOUNTER 2017-05-01 23:58 | Outpatient (CLI) | payer SELFPAY ==
--- NOTE | 2017-05-02 00:03 | Non Stress Test Report ---
Non Stress Test Datetime Report Generated by CPN: 05/02/2017 00:02 DEMOGRAPHIC EGA NST: 39.0 INDICATION Indication for Study: Ordered by Provider MONITORING Monitor Explained: Monitor Explained; Test Explained; Patient Verbalized Understanding Time on Monitor: 04/25/2017 22:05 Time off Monitor: 04/25/2017 23:36 NST Duration: 91 NST INTERVENTIONS NST Interventions: PO Hydration Physician Notified NST: Dr. Carney BABY A: [id number] BABY A Movement : Present Contraction Frequency : 4-5 FHR Baseline : 125 Accelerations : 15X15 Decelerations : None Variability : Moderate 6-25bpm NST Review: Meets Criteria for Reactive NST NST Review and Verified By : Melissa Shook RN NST Results: Reactive NST REPORT Report Trigger: Send Report
[2017-05-02 00:37] LABS: APPEARANCE,URINE SLIGHTLY-CLOUDY; BILIRUBIN,URINE NEGATIVE (NEGATIVE); COLOR,URINE STRAW; GLUCOSE, URINE NEGATIVE (NEGATIVE); KETONES,URINE NEGATIVE (NEGATIVE); LEUKOCYTE ESTERASE,URINE SMALL (NEGATIVE); NITRITE,URINE NEGATIVE (NEGATIVE); PROTEIN,URINE NEGATIVE (NEGATIVE); URINE SPECIFIC GRAVITY 1.002; UROBILINOGEN,URINE NEGATIVE mg/dL (<2.0)
[2017-05-02 01:47] LABS: URINE AMPHETAMINES SCREEN NEGATIVE; URINE BARBITURATES SCREEN NEGATIVE; URINE BENZODIAZEPINES SCREEN NEGATIVE; URINE COCAINE SCREEN NEGATIVE; URINE MARIJUANA (THC) SCREEN NEGATIVE; URINE METHADONE SCREEN NEGATIVE; URINE PHENCYCLIDINE SCREEN NEGATIVE
[2017-05-02] MEDS ORDERED: HYDROXYZINE PAMOATE 50 MG CAPSULE ONE (02:23)
--- NOTE | 2017-05-02 04:13 | Non Stress Test Report ---
Non Stress Test Datetime Report Generated by CPN: 05/02/2017 04:13 DEMOGRAPHIC EGA NST: 40.0 INDICATION Indication for Study: Ordered by Provider MONITORING Monitor Explained: Monitor Explained; Test Explained; Patient Verbalized Understanding Time on Monitor: 05/02/2017 00:10 Time off Monitor: 05/02/2017 01:28 NST Duration: 78 NST INTERVENTIONS NST Interventions: PO Hydration Physician Notified NST: Dr Carney BABY A Movement : Present Contraction Frequency : 2-7 FHR Baseline : 130 Accelerations : 15X15 Decelerations : None Variability : Moderate 6-25bpm NST Review: Meets Criteria for Reactive NST NST Review and Verified By : gogo GRAYT Results: Reactive NST REPORT Report Trigger: Send Report
== END 2017-05-02 02:36 | disposition home or self-care (01) ==
LOC: LC 23:58
PROVIDERS: ATTEND Obstetrics & Gynecology
PROC: 4A1HXCZ Monitoring of Products of Conception, Cardiac Rate, External Approach (ICD-10-PCS; principal; 2017-05-01)
DX: O47.1 False labor at or after 37 completed weeks of gestation (principal); Z3A.40 40 weeks gestation of pregnancy
CPT/HCPCS: 59025; 80307; 81005

== ENCOUNTER 2017-05-03 10:36 | Inpatient (IN) | payer MEDICAID ==
[2017-05-03] MEDS ORDERED: OXYTOCIN/NORMAL SALINE 20 UNIT/1,000 ML RTUINJ ONE (10:44)
[2017-05-03] MEDS ORDERED: PROMETHAZINE HCL INJ 25 MG/1 ML VIAL ONE (10:44)
[2017-05-03] MEDS ORDERED: NALBUPHINE HCL INJ 10 MG/1 ML AMPULE ONE (10:44)
--- NOTE | 2017-05-03 11:02 | Admission Physical ---
Datetime Report Generated by CPN: 05/03/2017 11:02 CURRENT ADMISSION Chief Complaint: Other Chief Complaint Other: delivered en route to hospital in EMS vehicle. Indication for Induction: Not Applicable Admit Plan: Admit to Unit; Initiate Labor Protocol ALLERGIES Medication Allergies: No Medication Allergies: No Known Allergies (05/02/2017) Latex: No Latex Allergies Food Allergies: N/A Environmental Allergies: N/A OBSTETRICAL HISTORY EDC: 05/02/2017 00:00 : 3 Para: 2 Term: 0 : 0 SAB: 0 IAB: 0 Ectopic: 0 Livin Cesareans: 0 VBACs: 0 Multiple Births: 0 Gestational Diabetes: No Rh Sensitization: No Incompetent Cervix: No PRABHAKAR: No Infertility: No ART Treatment: No Uterine Anomaly: No IUGR: No Hx Previous C/S: No Macrosomia: No Hx Loss/Stillborn: No PIH: No Hx : No Placenta Previa/Abruption: No Depression/PP Depression: No PTL/PROM: No Post Hemorrhage: No Current Procedures: Ultrasound; NST Obstetrical History Comments: baby girl at 37 weeks per patient g2 baby girl at 37 weeks per patient g3- current SEE RECORDS Alcohol: No Marijuana : No Cocaine: No Other Illicit Drugs: No Cigarettes: Current Everyday Smoker. [id number] Cigarette Frequency: < 5 per day Advised to Stop: Yes MEDICAL HISTORY Diabetes: No Blood Transfusion: No Pulmonary Disease (Asthma, TB): Yes Breast Disease: No Hypertension: No Legal Specialist Surgery: No Heart Disease: No Hosp/Surgery: Yes Autoimmune Disorder: No Anesthetic Complications: No Kidney Disease: No Abnormal Pap Smear: No Neuro/Epilepsy: No Psychiatric Disorders: No Other Medical Diseases: No Hepatitis/Liver Disease: No Significant Family History: No Varicosities/Phlebitis: No Trauma/Violence : No Thyroid Dysfunction: No Medical History Comments: hx of asthma, chilbirth INFECTIOUS HISTORY Gonorrhea: No Genital Herpes: No Chlamydia: Yes Tuberculosis: No Syphilis: No Hepatitis: No HIV/AIDS Exposure: No Rash or Viral Illness: No HPV: No Infectious History Comments: chlamydia 2010 per patient PHYSICAL EXAM General: Normal HEENT: Normal Neurologic: Normal Thyroid: Normal Heart: Normal Lungs: Normal Breast: Normal Back: Normal Abdomen: Normal Genitourinary Exam: Normal Extremities: Normal DTRs: Normal Pelvic Type: Adequate Vital Signs: Reviewed FETUS A EGA: 40.1 Admit Comment: see delivery summary for placental delivery PLANS FOR LABOR AND DELIVERY Labor and Delivery: None Pain Management: Epidural Feeding Preference: Breast Benefit of Breast Feed Discussed: Yes INFORMED CONSENT Signature: with User ID: [email or web address]
[2017-05-03] MEDS ORDERED: PROMETHAZINE HCL INJ 25 MG/1 ML VIAL IV ONE (11:03)
[2017-05-03] MEDS ORDERED: NALBUPHINE HCL INJ 10 MG/1 ML AMPULE INJ ONE (11:03)
[2017-05-03] MEDS ORDERED: ZOLPIDEM TARTRATE 5 MG TABLET PO PRN (11:06)
[2017-05-03] MEDS ORDERED: MAGNESIUM HYDROXIDE SUSP 30 ML UDCUP PO PRN (11:06)
[2017-05-03] MEDS ORDERED: MEASLES,MUMPS&RUBELLA VACC/PF 0.5 ML VIAL SUBCUT PRN (11:06)
[2017-05-03] MEDS ORDERED: NA PHOS,M-B/NA PHOS,DI-BA (ADULT) 133 ML ENEMA PR PRN (11:06)
[2017-05-03] MEDS ORDERED: PSEUDOEPHEDRINE HCL 30 MG TABLET PO PRN (11:06)
[2017-05-03] MEDS ORDERED: BENZOCAINE/MENTHOL AEROSOL SPRAY 56 ML TOP PRN (11:06)
[2017-05-03] MEDS ORDERED: DIPHENHYDRAMINE HCL 25 MG CAPSULE PO PRN (11:06)
[2017-05-03] MEDS ORDERED: GLYCERIN/WITCH HAZEL LEAF 1 EACH MED..PAD TP PRN (11:06)
[2017-05-03] MEDS ORDERED: ACETAMINOPHEN 650 MG SUPP.RECT PR PRN (11:06)
[2017-05-03] MEDS ORDERED: PROMETHAZINE HCL INJ 25 MG/1 ML VIAL IV PRN (11:06)
[2017-05-03] MEDS ORDERED: DIBUCAINE 1% OINTMENT 28 GM TP PRN (11:06)
[2017-05-03] MEDS ORDERED: OXYTOCIN/NORMAL SALINE 20 UNIT/1,000 ML RTUINJ IV PRN (11:06)
[2017-05-03] MEDS ORDERED: DIPH/PERTUSS(ACELL)/TETANUS VAC/PF 0.5 ML SYR (>=10YO) IM PRN (11:06)
[2017-05-03] MEDS ORDERED: ACETAMINOPHEN WITH CODEINE #3 TABLET PO PRN (11:06)
[2017-05-03] MEDS ORDERED: PROMETHAZINE HCL 25 MG SUPP.RECT PR PRN (11:06)
[2017-05-03] MEDS ORDERED: PROMETHAZINE HCL 25 MG TABLET PO PRN (11:06)
[2017-05-03 12:04] LABS: ABSOLUTE BASOPHILS # (AUTO) 0.1 10^3/uL (0.0-0.2); ABSOLUTE EOSINOPHILS # (AUTO) 0.1 10^3/uL (0.0-0.6); ABSOLUTE LYMPHOCYTES (AUTO) 1.8 10^3/uL (0.5-4.7); ABSOLUTE MONOCYTES (AUTO) 0.6 10^3/uL (0.1-1.4); ABSOLUTE NEUT (AUTO) 8.5 10^3/uL (1.7-8.2); BASOPHILS % (AUTO) 0.5 % (0-2); EOSINOPHILS % (AUTO) 1.1 % (0-6); HEMATOCRIT 30.7 % (36.0-47.0); HEMOGLOBIN 10.4 g/dL (12.0-15.5); LYMPHOCYTES % (AUTO) 16.6 % (13-45); MEAN CORPUSCULAR HEMOGLOBIN 30.5 pg (27.0-33.4); MEAN CORPUSCULAR HGB CONC 33.9 g/dL (32.0-36.0); MEAN CORPUSCULAR VOLUME 90 fl (80-97); MONOCYTES % (AUTO) 5.7 % (3-13); PLATELET COUNT 194 10^3/uL (150-450); RED BLOOD COUNT 3.42 10^6/uL (3.72-5.28); RED CELL DISTRIBUTION WIDTH 13.7 % (11.5-14.0); SEGMENTED NEUTROPHILS % (AUTO) 76.1 % (42-78); TOTAL CELLS COUNTED % (AUTO) 100 %; WHITE BLOOD COUNT 11.1 10^3/uL (4.0-10.5)
[2017-05-03 12:14] LABS: APPEARANCE,URINE CLOUDY; BILIRUBIN,URINE NEGATIVE (NEGATIVE); COLOR,URINE RED; GLUCOSE, URINE NEGATIVE (NEGATIVE); KETONES,URINE NEGATIVE (NEGATIVE); LEUKOCYTE ESTERASE,URINE TRACE (NEGATIVE); NITRITE,URINE NEGATIVE (NEGATIVE); PROTEIN,URINE 100 mg/dL (NEGATIVE); UROBILINOGEN,URINE NEGATIVE mg/dL (<2.0)
[2017-05-03 12:57] LABS: URINE AMPHETAMINES SCREEN NEGATIVE; URINE BARBITURATES SCREEN NEGATIVE; URINE BENZODIAZEPINES SCREEN NEGATIVE; URINE COCAINE SCREEN NEGATIVE; URINE MARIJUANA (THC) SCREEN NEGATIVE; URINE METHADONE SCREEN NEGATIVE; URINE PHENCYCLIDINE SCREEN NEGATIVE
[2017-05-03] MEDS: ACETAMINOPHEN WITH CODEINE #3 TABLET PO PRN (15:41)
[2017-05-03] MEDS: IBUPROFEN 800 MG TABLET PO SCH ×2 (17:03→21:13)
[2017-05-03] MEDS: DOCUSATE SODIUM 100 MG CAPSULE PO SCH (17:48)
[2017-05-03] MEDS: FERROUS SULFATE 325 MG TABLET PO SCH (17:49)
[2017-05-03] MEDS: FAMOTIDINE 20 MG TABLET PO SCH (21:30)
[2017-05-04] MEDS: ACETAMINOPHEN WITH CODEINE #3 TABLET PO PRN ×2 (02:14→12:14)
[2017-05-04] MEDS: IBUPROFEN 800 MG TABLET PO SCH ×3 (05:57→21:04)
[2017-05-04 07:55] LABS: HEMATOCRIT 30.5 % (36.0-47.0); HEMOGLOBIN 10.3 g/dL (12.0-15.5); MEAN CORPUSCULAR HEMOGLOBIN 30.2 pg (27.0-33.4); MEAN CORPUSCULAR HGB CONC 33.8 g/dL (32.0-36.0); MEAN CORPUSCULAR VOLUME 89 fl (80-97); PLATELET COUNT 186 10^3/uL (150-450); RED BLOOD COUNT 3.42 10^6/uL (3.72-5.28); RED CELL DISTRIBUTION WIDTH 14.1 % (11.5-14.0); WHITE BLOOD COUNT 13.9 10^3/uL (4.0-10.5)
[2017-05-04] MEDS: FERROUS SULFATE 325 MG TABLET PO SCH ×2 (09:26→18:19)
[2017-05-04] MEDS: SENNOSIDES/DOCUSATE 8.6-50 MG 1 EACH TABLET PO SCH (09:26)
[2017-05-04] MEDS: DOCUSATE SODIUM 100 MG CAPSULE PO SCH ×2 (09:26→18:19)
[2017-05-04] MEDS: PRENATAL VITAMIN W DHA CAPSULE PO SCH (09:26)
[2017-05-04] MEDS: FAMOTIDINE 20 MG TABLET PO SCH ×2 (09:26→21:04)
--- NOTE | 2017-05-04 09:49 | PDOC PROGRESS REPORT ---
Subjective-OB Progress Note for:: 05/04/17 Physical Exam (OB) Vital Signs: Temp Pulse Resp BP Pulse Ox 97.8 F 76 18 119/66 98 05/04/17 08:10 05/04/17 08:10 05/04/17 08:10 05/04/17 08:10 05/04/17 08:10 Intake & Output 05/03/17 05/04/17 05/05/17 06:59 06:59 06:59 Weight 100 kg - PIH/Pre-Eclampsia DTR's: 2 + Clonus: Negative Headache: Absent Epigastric Pain: No Visual Changes: No - Lochia Lochia Amount: Small 10-25 ml Lochia Color: Rubra/Red - Abdomen Description: Tender, Soft Hernia Present: No Fundal Description: Firm, Midline Fundal Height: u/u - u/2 - Respiratory Breath sounds: Clear - Extremities Calf: Normal Objective-Diagnostic Laboratory: 05/04/17 07:14 05/03/17 05/03/17 05/03/17 11:25 11:25 11:47 WBC 11.1 H RBC 3.42 L Hgb 10.4 L Hct 30.7 L MCV 90 MCH 30.5 MCHC 33.9 RDW 13.7 Plt Count 194 Seg Neutrophils % 76.1 Lymphocytes % 16.6 Monocytes % 5.7 Eosinophils % 1.1 Basophils % 0.5 Absolute Neutrophils 8.5 H Absolute Lymphocytes 1.8 Absolute Monocytes 0.6 Absolute Eosinophils 0.1 Absolute Basophils 0.1 Urine Color RED Urine Appearance CLOUDY Urine pH 7.0 Ur Specific [place] 1.010 Urine Protein 100 H Urine Glucose (UA) NEGATIVE Urine Ketones NEGATIVE Urine Blood LARGE H Urine Nitrite NEGATIVE Ur Leukocyte Esterase TRACE H Blood Type O POSITIVE Antibody Screen NEGATIVE 05/04/17 07:14 WBC 13.9 H RBC 3.42 L Hgb 10.3 L Hct 30.5 L MCV 89 MCH 30.2 MCHC 33.8 RDW 14.1 H Plt Count 186 Seg Neutrophils % Lymphocytes % Monocytes % Eosinophils % Basophils % Absolute Neutrophils Absolute Lymphocytes Absolute Monocytes Absolute Eosinophils Absolute Basophils Urine Color Urine Appearance Urine pH Ur Specific [place] Urine Protein Urine Glucose (UA) Urine Ketones Urine Blood Urine Nitrite Ur Leukocyte Esterase Blood Type Antibody Screen Assessment and Plan(PN) - Assessment and Plan (1) delivered at home Is this a current diagnosis for this admission?: Yes - Time Spent with Patient Time with patient: Less than 15 minutes Medications reviewed and adjusted accordingly: Yes - Disposition Anticipated Discharge: Home Within: within 24 hours
[2017-05-04 11:49] LABS: CHLAM PCR NOT DETECTED (NOT DETECT); GON PCR NOT DETECTED (NOT DETECT)
[2017-05-05] MEDS: IBUPROFEN 800 MG TABLET PO SCH ×2 (05:58→13:47)
--- NOTE | 2017-05-05 09:50 | PDOC DISCHARGE SUMMARY ---
Final Diagnosis Discharge Date: 05/05/17 - Final Diagnosis (1) Delivery normal Is this a current diagnosis for this admission?: Yes (2) delivered at home Is this a current diagnosis for this admission?: Yes Discharge Data - Discharge Medication Prescriptions: Acetaminophen with Codeine [Tylenol #3 Tablet] 2 each PO Q4HP PRN #20 tablet PRN Reason: Docusate Sodium [Colace 100 mg Capsule] 100 mg PO BID #60 capsule Ferrous Sulfate [Feosol 325 mg Tablet] 325 mg PO BID #60 tablet Ibuprofen [Motrin 800 mg Tablet] 800 mg PO Q8 #60 tablet Home Medications: Acetaminophen with Codeine [Tylenol #3 Tablet] 2 each PO Q4HP PRN #20 tablet Docusate Sodium [Colace 100 mg Capsule] 100 mg PO BID #60 capsule 05/05/17 Ferrous Sulfate [Feosol 325 mg Tablet] 325 mg PO BID #60 tablet 05/05/17 Ibuprofen [Motrin 800 mg Tablet] 800 mg PO Q8 #60 tablet 05/05/17 Reason(s) for Admission: Onset of Labor Intrapartum Procedure(s): Other - outside delivery, limited care - Diagnosis Test Laboratory: Temp Pulse Resp BP Pulse Ox 98.0 F 81 15 123/69 99 05/05/17 07:41 05/05/17 07:41 05/05/17 07:41 05/05/17 07:41 05/05/17 07:41 05/03/17 05/03/17 05/04/17 11:25 11:47 07:14 RBC 3.42 L 3.42 L Hgb 10.4 L 10.3 L Hct 30.7 L 30.5 L Urine Opiates Screen NEGATIVE - Discharge information/Instructions Discharge Activity: Activity As Tolerated, Pelvic Rest, No tub bath Discharge Diet: Regular Disposition: HOME, SELF-CARE Follow up with: [facility] in: 4, Weeks - f/u at [facility]
[2017-05-05] MEDS: FERROUS SULFATE 325 MG TABLET PO SCH (10:27)
[2017-05-05] MEDS: DOCUSATE SODIUM 100 MG CAPSULE PO SCH (10:27)
[2017-05-05] MEDS: PRENATAL VITAMIN W DHA CAPSULE PO SCH (10:27)
[2017-05-05] MEDS: SENNOSIDES/DOCUSATE 8.6-50 MG 1 EACH TABLET PO SCH (10:27)
[2017-05-05] MEDS: FAMOTIDINE 20 MG TABLET PO SCH (10:27)
[2017-05-05] MEDS ORDERED: MEDROXYPROGESTERONE ACET INJ 150 MG/1 ML VIAL IM ONE (10:30)
[2017-05-05 10:38] VITALS: BP 129/60
--- NOTE | 2017-05-10 16:04 | Delivery Summary ---
Del Sum A-C Datetime Report Generated by CPN: 05/10/2017 16:04 DELIVERY PERSONNEL DELIVERY PERSONNEL: [id number] MATERNAL INFORMATION Estimated Blood Loss (ml): 200 Provider Comments: placenta delivered without difficulty approximately 30 minutes after delivery en route of infant. LABOR SUMMARY EDC: 05/02/2017 00:00 No. Babies in Womb: 1 LABOR INFORMATION Group B Beta Strep: Negative STAGES OF LABOR Stage 3 hr: 0 Stage 3 min: 34 VAGINAL DELIVERY Laceration #1: None Laceration Extension #1: N/A Laceration Repair: Not Applicable BABY A INFORMATION Infant Delivery Date/Time: 05/03/2017 10:00 Method of Delivery: Vaginal Born in Route : Yes : N/A Forceps: N/A Vacuum Extraction: N/A Shoulder Dystocia : No PLACENTA INFORMATION BABY A Placenta Delivery Time : 05/03/2017 10:34 Placenta Method of Delivery: Spontaneous Placenta Status: Delivered INFANT INFORMATION BABY A Gestational Age at Delivery: 40.0 Gestational Status: Full Term- 39- 40.6 Weeks Infant Outcome : Liveborn Condition : Stable Sex: Male IDENTIFICATION BABY A Verification Date/Time: 05/03/2017 11:08 ID Band Number: [id number] Mother's Name Verified: Yes RN Verifying Infant: CHarhs Castillos, RN/Alvaro Roper, RN WEIGHT/LENGTH BABY A Birthweight (gm): 3560 Infant Weight (lb): 7 Weight (oz): 14 Infant Length (in): 20.50 Infant Length (cm): 52.07 CORD INFORMATION BABY A No. Cord Vessels: 3 Cord Blood Taken: Yes-For Eval (Mom's Blood Type - or O+) Suction: None ASSESSMENT BABY A Infant Complications: None Physical Findings at Delivery: Within Normal Limits Infant Respirations: Appears Normal Skin to Skin: Yes Skin to Skin Time (min): 30 Demo Event Specialist/ALS Called : No Infant Care By: Heidi Byrd RN Transferred To: Remains with Mother SIGNATURES Signature: with User ID: [email or web address]
== END 2017-05-05 14:32 | disposition home or self-care (01) | DRG 775 ==
LOC: LR 10:36 → 2S 15:25
PROVIDERS: ADMIT Obstetrics & Gynecology; ATTEND Obstetrics & Gynecology
PROC: 10E0XZZ Delivery of Products of Conception, External Approach (ICD-10-PCS; principal; 2017-05-03)
PROC: 3E0234Z Introduction of Serum, Toxoid and Vaccine into Muscle, Percutaneous Approach (ICD-10-PCS; 2017-05-05)
DX: Z39.0 Encounter for care and examination of mother immediately after delivery (principal); F17.210 Nicotine dependence, cigarettes, uncomplicated; Z23 Encounter for immunization
CPT/HCPCS: 36415; 80307; 81005; 85025; 85027; 86592; 86850; 86900; 86901; 87491; 87591; 90715; J1050; J2300; J2550; J2590; J3490

== ENCOUNTER 2017-08-06 13:33 | Emergency (ER) | payer OTHER ==
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
[2017-08-06] MEDS ORDERED: HYDROCODONE/ACETAMINOPHEN 5-325 MG TABLET PO ONE (14:40)
[2017-08-06] MEDS ORDERED: IBUPROFEN 400 MG TABLET PO ONE (14:40)
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
[2017-08-06 16:04] VITALS: BP 120/82
== END 2017-08-06 16:38 | disposition home or self-care (01) ==
LOC: ER 13:33
DX: T14.8XXA Other injury of unspecified body region, initial encounter (principal); S80.02XA Contusion of left knee, initial encounter; S50.02XA Contusion of left elbow, initial encounter; S00.81XA Abrasion of other part of head, initial encounter; M54.2 Cervicalgia; M54.9 Dorsalgia, unspecified; M25.562 Pain in left knee; M25.522 Pain in left elbow; V49.40XA Driver injured in collision with unspecified motor vehicles in traffic accident, initial encounter; F17.200 Nicotine dependence, unspecified, uncomplicated; J45.909 Unspecified asthma, uncomplicated
CPT/HCPCS: 99284; 72040; 73080; 73562; 72110; 72070; J3490

== ENCOUNTER 2017-09-19 13:50 | Emergency (ER) | payer OTHER ==
[2017-09-19 13:58] VITALS: BP 128/68
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
== END 2017-09-19 14:33 | disposition home or self-care (01) ==
LOC: ER 13:50
DX: H00.011 Hordeolum externum right upper eyelid (principal); S33.5XXA Sprain of ligaments of lumbar spine, initial encounter; V49.9XXA Car occupant (driver) (passenger) injured in unspecified traffic accident, initial encounter; F17.200 Nicotine dependence, unspecified, uncomplicated; J45.909 Unspecified asthma, uncomplicated
CPT/HCPCS: 99283

== ENCOUNTER 2017-10-18 23:48 | Emergency (ER) | payer OTHER ==
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
[2017-10-19] MEDS ORDERED: HYDROCODONE/ACETAMINOPHEN 5-325 MG TABLET PO ONE (01:43)
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
== END 2017-10-19 02:55 | disposition home or self-care (01) ==
LOC: ER 23:48
DX: S02.40DA Maxillary fracture, left side, initial encounter for closed fracture (principal); M54.2 Cervicalgia; R68.84 Jaw pain; R51 Headache; Y04.2XXA Assault by strike against or bumped into by another person, initial encounter; Y92.009 Unspecified place in unspecified non-institutional (private) residence as the place of occurrence of the external cause; R11.0 Nausea; J45.909 Unspecified asthma, uncomplicated; F17.200 Nicotine dependence, unspecified, uncomplicated
CPT/HCPCS: 70450; 70486; 72125; 99284